=== PATIENT | female | born 1965 | race Caucasian/White ===

== ENCOUNTER 2023-08-13 12:58 | Emergency (ER) | payer OTHER, SELFPAY ==
[2023-08-13 13:00] VITALS: BP 130/66; BMI 19.3
--- NOTE | 2023-08-13 15:16 | ED.GENMED ---
History of Present Illness
General
Chief Complaint: Abdominal Pain
Source: patient
Exam Limitations: none
Time Seen by Provider: 08/13/23 14:41
Nursing documentation reviewed up to this point in time: agreed with
Travel History
Have you had any contact with someone who has COVID-19?: No
Do you have any symptoms of coronavirus? Fever > 100 degrees, chills, cough, shortness of breath, sore throat, loss of taste or smell, muscle aches, or headache?: No
History of Present Illness
History of Present Illness:
pt is a 58 y/o F with some cognitive issues (chronic, has had w/u with no diagnosis, forgetful and anxious)
lives alone
here with mother
saying that she has had intermittent epgiastric pain for months but today at 1130 am started vomiting
vomited x 2 at home
nonbloody nonbilious emesis
no fever, chills, diarrhea
her pain is mild upper abd
nausea resolved
no cp, sob, no black stool
doesn't drink alcohol
in regards to the pain she has had no work up for this problem, it has been intermittent and pt cannot recall if it is related to eating or not
she has never seen her PCP or GI
pt looks to her mother to answer questions reliably
she often times seems flustered
Past History
Past History
ED Past Medical History: Other (cognitive issues, memory problems?)
ED Past Surgical History: None
Social History
Tobacco: Non-smoker
Alcohol: None
Drug: None
Personal: Single
Living: alone
Employment: Employed
Review of Systems
Review of Systems
Allergies reviewed?: Yes
All Other Systems: Not applicable
Phy Exam
Physical Exam
Physical Exam:
GENERAL: Alert , in no apparent distress
EYE: pupils equal and reactive
NECK: Supple
ENT: o/p clr, mmm.
CARDIAC: Regular rate and rhythm .
LUNGS: Clear breath sounds bilaterally, no acute respiratory distress, no wheezes/rales/rhonchi
ABDOMEN: Soft, epigastirc tenderness, mild; no r/g, no cvat, normal bowel sounds
NEUROLOGICAL: Alert and oriented, no focal neuro deficits
SKIN: Warm and dry, skin intact.
MUSCULOSKELETAL: No edema, well perfused.
PSYCH: Normal and appropriate interaction.
Course
Orders/Labs/Results
Orders:
Orders
08/13/23 14:55
Complete Blood Count/With Diff Urgent
Comprehensive Metabolic Panel Urgent
Lipase Urgent
08/13/23 15:16
Iohexol [Omnipaque] See Protocol PO NOW STA
08/13/23 15:17
0.9% Sodium Chloride 1000 ml [Nss] 1,000 ml IV BOLUS
Famotidine [Pepcid] 20 mg IV NOW STA
Ondansetron Injectable [Zofran] 4 mg IV NOW STA
US Abdomen Complete/Upper Urgent
Comment:
Reason For Exam: upper abd pain, vomiting
08/13/23 16:16
CT Abd/pel W Iv And Oral Contr Urgent
Comment:
Reason For Exam: upper abd pain, vomiting; already prepping
08/13/23 17:52
Urinalysis Reflex To Culture Urgent
Date Specimen was Collected: 08/13/23
Time Specimen was Collected: 17:49
Abnormal Lab Results
08/13/23
14:55
WBC 13.7 H 10^3/uL
(4.8-10.8)
Abs Immat Gran (auto) 0.1 H 10^3/uL
(0-0.05)
Absolute Neuts (auto) 12.7 H 10^3/uL
(1.4-6.5)
Absolute Lymphs (auto) 0.4 L 10^3/uL
(1.2-3.4)
Neutrophils % 92.4 H %
(42.2-75.2)
Lymphocytes % 3.0 L %
(20.5-51.1)
BUN 31 H mg/dl
(7-17)
Creatinine 0.5 L mg/dL
(0.6-1.0)
AST 42 H U/L
(14-36)
08/13/23 14:55
08/13/23 14:55
Vital Signs
Initial and Last Documented VS:
Initial Vital Signs
Temp Pulse Resp BP Pulse Ox
98.2 F 82 16 130/66 100
08/13/23 13:00 08/13/23 13:00 08/13/23 13:00 08/13/23 13:00 08/13/23 13:00
Last Documented Vital Signs
Temp Pulse Resp BP Pulse Ox
98.2 F 76 17 103/64 98
08/13/23 13:00 08/13/23 19:16 08/13/23 19:16 08/13/23 19:16 08/13/23 19:16
MDM/Problems Addressed
Differential Diagnosis Includes:
gastritis, cholelithiasis, colitis, pancreatitis
MDM/Problems Addressed:
58 y/o F with unclear memory issues
lives alone
here with pain i epgiastric region with vomiting today
has had this pain episodic for months, mother knows song phillips will complain when she sees her but usually isn't vomiting
no fever, no stool changes
no alcohol abuse
no somking but some stress
on exam mininaml tendenres to epigastric region
pt seems to be unreliable historian, forgetful, looking to mother for answers but she is awake alert and oriented, reports no abuse and feels safe at home
w/u here for cholelithiasis/gastritis --> mild lleukocytosis
initial imaging with US which was neg
ct ordered given concern for lack of details regarding other episodes of pain
and concern for poor f/u with outpatient PCP
ct sohws distension of the stomach, and some mild distension of SB and colon loops without obstructions
she was able to tolerate oral contrazst
feels better after pepcid
will give RX for pepcid and strongly encourage EGD via outpatient GI
return precautions inc ase pt develops into SBO.
*Critical Care Note
Total Time (30-74mins, 75-104mins- exclusive of procedures): Not Applicable
ED Attending Note
-
Portions of this chart may have been created with voice recognition software.� Occasional wrong word or��sound alike� substitutions may have occurred due to the inherent limitations of voice recognition software.
Discharge Plan
Departure
Patient Disposition: Home (Routine Discharge)
Date of Disposition: 08/13/23
Time of Disposition: 19:15
Patient with high blood pressure during this ER visit?: No
Condition: Fair
Covid-19: Not Applicable
Discharge Problem:
Gastroenteritis
Instructions: Gastritis (DC), Viral Gastroenteritis, Adult (DC)
Prescriptions:
New
dicyclomine 20 mg tablet
20 mg PO TID PRN (Reason: abdominal pain) Qty: 14 0RF
famotidine [Pepcid AC] 20 mg tablet
20 mg PO BID Qty: 14 0RF
Referrals:
Rodney Garcia MD [Active] - Follow up in 5-7 days (gi)
Kareem Leonard Jr., [Family Provider] - Follow up in 5-7 days
Activity Restrictions/Additional Instructions:
Your symptoms are likely caused from a viral stomach bug. Your stomach was distended, filled with air. This can make you feel very bloated. If this worsens you could get a bowel obstruction. Please make sure to advance your diet very slowly.
Start with liquids and increase to bland solids as tolerated. For stomach discomfort you can take Pepcid twice a day for a week. Then for crampy abdominal pain you can also try Bentyl 2 or 3 times a day as needed. The Pepcid you should try to
take regularly twice a day for 1 week but the Bentyl you could use only as needed if the Pepcid is not helping. Follow-up with your family doctor, you may need a referral for GI for further workup. Should you get worsening pain, vomiting, fever,
chills, etc. you should come to the ER immediately
Interventions
Interventions:
*Risk Screen - Suicide Last Done: 08/13/23 13:00
*General Assessment Last Done: 08/13/23 19:43
*Neglect/Abuse Screening Last Done: 08/13/23 13:00
ED- Fall Risk Assessment Last Done: 08/13/23 19:43
*ED COVID-19 Vaccine History Last Done: 08/13/23 13:00
*Nursing Disposition Last Done: 08/13/23 19:43
DF-Hwfyte-Zxthmdjgjm Assessment Last Done: 08/13/23 15:17
Discharge Date and Time
Discharge Date/Time: 08/13/23 19:49
Print Language: ICELANDIC
[2023-08-13 15:23] LABS: % Basophils 0.2 % (0-2); % Eosinophils 0.6 % (0-6); % Immature Granulocytes 0.4 % (0-0.5); % Monocytes 3.4 % (1.7-9.3); % Neutrophils 92.4 % (42.2-75.2); Absolute Eosinophils 0.1 10^3/uL (0-0.7); Absolute Immature Granulocytes 0.1 10^3/uL (0-0.05); Absolute Lymphocytes 0.4 10^3/uL (1.2-3.4); Absolute Monocytes 0.5 10^3/uL (0.1-0.6); Absolute Neutrophils 12.7 10^3/uL (1.4-6.5); Hematocrit 45.4 % (37.0-47.0); Hemoglobin 15.5 g/dL (12.0-16.0); Mean Corp Hgb Conc. 34.1 g/dL (33.0-37.0); Mean Corpuscular Hgb 29.4 pg (27.0-31.0); Mean Corpuscular Volume 86.1 fL (81.0-99.0); Mean Platelet Volume 9.7 fL (7.4-10.4); Nucleated Red Blood Cells % 0 %; Platelet Count 257 10^3/uL (130-400); Red Blood Cell Count 5.27 10^6/uL (4.20-5.40); Red Cell Dist. Width 13.4 % (11.5-14.5); White Blood Cell Count 13.7 10^3/uL (4.8-10.8)
[2023-08-13] MEDS: OMNIPAQUE 50 ML PO (15:26)
[2023-08-13] MEDS: NSS 1000 IV (15:27)
[2023-08-13] MEDS: PEPCID 20 MG IV (15:27)
[2023-08-13] MEDS: ZOFRAN 4 MG IV (15:27)
[2023-08-13 16:00] LABS: ALT (SGPT) 32 U/L (0-35); AST (SGOT) 42 U/L (14-36); Albumin 4.9 g/dl (3.5-5.0); Alkaline Phosphatase 99 U/L (38-126); Blood Urea Nitrogen 31 mg/dl (7-17); Calcium 9.9 mg/dl (8.4-10.2); Carbon Dioxide 22 mmol/L (22-30); Chloride 107 mmol/L (98-107); Estimated Creatinine Clearance 72 ml/min; Glucose 93 mg/dl (70-99); Lipase 106 U/L (23-300); Potassium 4.3 mmol/L (3.5-5.1); Sodium 137 mmol/L (135-145); Total Bilirubin 0.8 mg/dl (0.2-1.3); Total Protein 7.8 g/dl (6.3-8.2); eGFR > 60.00
[2023-08-13 18:13] LABS: Urine Albumin Negative (Neg - Trace); Urine Bilirubin Negative (Negative); Urine Character Clear (Clear); Urine Color Straw; Urine Glucose Negative (Negative); Urine Ketone Negative (Negative); Urine Leukocyte Negative (Negative); Urine Nitrite Negative (Negative); Urine Occult Blood Negative (Negative); Urine Specific Gravity 1.005 (<1.030); Urine Urobilinogen Negative (Neg - 1+); Urine pH 6.5 (5.0-9.0)
[2023-08-13 19:16] VITALS: BP 103/64
== END 2023-08-13 19:49 | disposition home or self-care (01) ==
LOC: EMR 12:58
PROVIDERS: Physician Assistant; EMERGENCY PHYSICIAN Emergency Medicine; FAMILY PHYSICIAN Family Medicine
DX: K52.9 Noninfective gastroenteritis and colitis, unspecified (principal)
CPT/HCPCS: 99284; 96374; 96375; 96361; 74177; 76700; 80053; 81003; 83690; 85025; Q9967

== ENCOUNTER → 2023-09-10 08:40 | Outpatient (REF) | payer OTHER, SELFPAY | LOC: RAD 08:40 | PROVIDERS: ATTENDING PHYSICIAN Family Medicine | DX: R10.13 Epigastric pain (principal) | CPT/HCPCS: 78227; A9537; J2805 ==

== ENCOUNTER → 2023-11-12 06:19 | Day surgery (SDC) | payer OTHER, SELFPAY | LOC: GI 06:19 | PROVIDERS: ATTENDING PHYSICIAN Internal Medicine | DX: R93.3 Abnormal findings on diagnostic imaging of other parts of digestive tract (principal); R12 Heartburn; K44.9 Diaphragmatic hernia without obstruction or gangrene; K29.50 Unspecified chronic gastritis without bleeding | CPT/HCPCS: 43239; 88305; 88342 ==

== ENCOUNTER 2024-10-27 06:45 | Emergency (ER) | payer OTHER, SELFPAY ==
[2024-10-27 06:48] VITALS: BP 110/69
[2024-10-27 07:28] VITALS: BMI 20.6
[2024-10-27 07:29] VITALS: BP 112/62
--- NOTE | 2024-10-27 07:38 | ED.GENMED ---
History of Present Illness
General
Chief Complaint: Breathing Problem
Time Seen by Provider: 10/27/24 07:06
History of Present Illness
History of Present Illness:
59-year-old female presents to the emergency department for evaluation of chest pain began this morning. Patient has apparently been complaining of this intermittently since Wednesday. History is limited due to severe dementia. Reportedly
recently started on donepezil and amantadine within the past week by her neurologist at [facility] in [place]. Patient also was reportedly tachypneic this morning which is since improved. She is unable to tell me whether pain still persist.
No recent fevers or respiratory symptoms. Mother also indicates that she has had some occasional complaints of upper abdominal pain since starting these medications.
Past History
Past History
ED Past Medical History: Other (cognitive issues, memory problems?)
ED Past Surgical History: None
Social History
Tobacco: Non-smoker
Alcohol: None
Drug: None
Personal: Single
Living: alone
Employment: Employed
Review of Systems
Review of Systems
Allergies reviewed?: Yes
All Other Systems: ROS reviewed and negative except as documented in HPI and ROS
Phy Exam
Physical Exam
Physical Exam:
GEN: Well appearing, NAD, WDWN
HEENT: Oral mucosa moist, no scleral icterus
Cardiac: Regular rate and rhythm, no murmurs
Lung: No respiratory distress, no tachypnea, lungs clear to auscultation bilaterally
MSK: No gross deformity or injuries
Skin: Good color, no pallor or jaundice, no rashes
Neuro: AO x3, moves all extremities freely
Psych: Calm, cooperative
Scores
Heart Failure Risk
Heart Failure Risk Score: Not Applicable
Course
Orders/Labs/Results
Orders:
Orders
10/27/24 06:56
EKG [Electrocardiogram (*1)] Urgent
Reason for Study: Shortness of Breath
EKG- Treatment ONCE
10/27/24 07:35
CR Chest - 2 Views Urgent
Comment:
Reason For Exam: chest pain
10/27/24 07:36
Complete Blood Count/With Diff Urgent
Comprehensive Metabolic Panel Urgent
Troponin I Urgent
10/27/24 09:35
EKG- Treatment ONCE
10/27/24 10:30
Electrocardiogram (*1) Urgent
Reason for Study: Chest Pain
10/27/24 11:24
Troponin I Urgent
Abnormal Lab Results
10/27/24
07:36
Chloride 111 H mmol/L
(98-107)
BUN 32 H mg/dl
(7-17)
Calcium 10.3 H mg/dl
(8.4-10.2)
10/27/24 07:36
10/27/24 07:36
Vital Signs
Initial and Last Documented VS:
Initial Vital Signs
Temp Pulse Resp BP Pulse Ox
98.3 F 78 20 110/69 100
10/27/24 06:48 10/27/24 06:48 10/27/24 06:48 10/27/24 06:48 10/27/24 06:48
Last Documented Vital Signs
Temp Pulse Resp BP Pulse Ox
98.3 F 64 20 106/56 99
10/27/24 06:48 10/27/24 09:30 10/27/24 09:30 10/27/24 09:02 10/27/24 09:30
MDM/Problems Addressed
MDM/Problems Addressed:
59-year-old female with early onset dementia presents due to chest pain. She had initial EKG and troponin that were unremarkable was observed in the emergency department due to consistent discomfort and repeat troponin and EKG were again normal.
She has no significant cardiovascular risk factors thus I do not have any clinical concern for ACS at this time. Doubt PE given normal vital signs. I discussed her case with her neurologist through [facility] who recommends we
discontinue both Namenda and Aricept as these are both relatively new to see if either of these is provoking her symptoms. She will follow-up as an outpatient with neurology
Comment
Comment:
EKG independently interpreted by me shows normal sinus rhythm at a rate of [address] changes concerning for ischemia
*Pulse Oximetry
SaO2: 100
Oxygen Mode of Delivery: Room air
Patient hypoxic: no
*Critical Care Note
Total Time (30-74mins, 75-104mins- exclusive of procedures): Not Applicable
ED Attending Note
-
Portions of this chart may have been created with voice recognition software.� Occasional wrong word or��sound alike� substitutions may have occurred due to the inherent limitations of voice recognition software.
Discharge Plan
Departure
Patient Disposition: Home (Routine Discharge)
Date of Disposition: 10/27/24
Time of Disposition: 12:18
Patient with high blood pressure during this ER visit?: No
Discharge Problem:
Chest pain
Instructions: Chest Pain (DC)
Prescriptions:
No Action
dicyclomine 20 mg tablet
20 mg PO TID PRN (Reason: abdominal pain) Qty: 14 0RF
famotidine [Pepcid AC] 20 mg tablet
20 mg PO BID Qty: 14 0RF
Referrals:
Kareem Leonard Jr., DO [Family Provider, Internal Medicine]
Activity Restrictions/Additional Instructions:
Follow up with your neurologist; she has recommended stopping both medications to see if this resolves her symptoms
Interventions
Interventions:
*Risk Screen - Suicide Last Done: 10/27/24 06:48
*General Assessment Last Done: 10/27/24 07:40
*Neglect/Abuse Screening Last Done: 10/27/24 06:48
*ED- Fall Risk Assessment Last Done: 10/27/24 12:37
*ED COVID-19 Vaccine History Last Done: 10/27/24 07:40
*Nursing Disposition Last Done: 10/27/24 12:37
ED- Cardiac Assessment Last Done: 10/27/24 08:54
ED- Pulmonary Assessment Last Done: 10/27/24 08:54
Discharge Date and Time
Discharge Date/Time: 10/27/24 12:39
Print Language: TAMAZIGHT
[2024-10-27 07:49] LABS: % Basophils 0.8 % (0-2); % Eosinophils 0.8 % (0-6); % Immature Granulocytes 0.4 % (0-0.5); % Lymphocytes 32.1 % (20.5-51.1); % Monocytes 8.5 % (1.7-9.3); % Neutrophils 57.4 % (42.2-75.2); Absolute Lymphocytes 1.6 10^3/uL (1.2-3.4); Absolute Monocytes 0.4 10^3/uL (0.1-0.6); Absolute Neutrophils 2.8 10^3/uL (1.4-6.5); Hematocrit 40.5 % (37.0-47.0); Hemoglobin 14.3 g/dL (12.0-16.0); Mean Corp Hgb Conc. 35.3 g/dL (33.0-37.0); Mean Corpuscular Hgb 29.2 pg (27.0-31.0); Mean Corpuscular Volume 82.8 fL (81.0-99.0); Mean Platelet Volume 9.8 fL (7.4-10.4); Nucleated Red Blood Cells % 0 %; Platelet Count 301 10^3/uL (130-400); Red Blood Cell Count 4.89 10^6/uL (4.20-5.40); Red Cell Dist. Width 13.2 % (11.5-14.5); White Blood Cell Count 4.8 10^3/uL (4.8-10.8)
[2024-10-27 08:23] LABS: ALT (SGPT) 24 U/L (0-35); AST (SGOT) 30 U/L (14-36); Alkaline Phosphatase 101 U/L (38-126); Blood Urea Nitrogen 32 mg/dl (7-17); Calcium 10.3 mg/dl (8.4-10.2); Carbon Dioxide 23 mmol/L (22-30); Chloride 111 mmol/L (98-107); Estimated Creatinine Clearance 62 ml/min; Glucose 98 mg/dl (70-99); Potassium 4.2 mmol/L (3.5-5.1); Sodium 143 mmol/L (135-145); Total Bilirubin 0.6 mg/dl (0.2-1.3); Total Protein 7.7 g/dl (6.3-8.2); eGFR > 60.00
[2024-10-27 08:31] LABS: Troponin I < 0.012 ng/ml
[2024-10-27 09:02] VITALS: BP 106/56
[2024-10-27 12:05] LABS: Troponin I < 0.012 ng/ml
== END 2024-10-27 12:39 | disposition home or self-care (01) ==
LOC: EMR 06:45
PROVIDERS: Physician Assistant; EMERGENCY PHYSICIAN Emergency Medicine; FAMILY PHYSICIAN Family Medicine
DX: R07.89 Other chest pain (principal); F03.C0 Unspecified dementia, severe, without behavioral disturbance, psychotic disturbance, mood disturbance, and anxiety
CPT/HCPCS: 99285; 71046; 80053; 84484; 85025; 93005

== ENCOUNTER → 2024-11-03 10:55 | Outpatient (REF) | payer OTHER, SELFPAY | LOC: HWRAD 10:55 | PROVIDERS: ATTENDING PHYSICIAN Family Medicine | DX: R07.89 Other chest pain (principal); R10.13 Epigastric pain | CPT/HCPCS: 76700 ==

== ENCOUNTER 2024-12-05 14:21 | Emergency (ER) | payer OTHER, SELFPAY ==
[2024-12-05 14:23] VITALS: BP 118/52
[2024-12-05 14:46] LABS: Hematocrit 41.5 % (37.0-47.0); Hemoglobin 14.2 g/dL (12.0-16.0); Mean Corp Hgb Conc. 34.2 g/dL (33.0-37.0); Mean Corpuscular Volume 83.5 fL (81.0-99.0); Nucleated Red Blood Cells % 0 %; Platelet Count 298 10^3/uL (130-400); Red Cell Dist. Width 13.9 % (11.5-14.5)
[2024-12-05 15:06] LABS: ALT (SGPT) 19 U/L (0-35); AST (SGOT) 27 U/L (14-36); Albumin 5.1 g/dl (3.5-5.0); Alkaline Phosphatase 87 U/L (38-126); Blood Urea Nitrogen 26 mg/dl (7-17); Calcium 10.3 mg/dl (8.4-10.2); Carbon Dioxide 27 mmol/L (22-30); Chloride 104 mmol/L (98-107); Glucose 89 mg/dl (70-99); Potassium 4.0 mmol/L (3.5-5.1); Sodium 140 mmol/L (135-145); Total Protein 7.7 g/dl (6.3-8.2); eGFR > 60.00
[2024-12-05 15:09] LABS: Troponin I < 0.012 ng/ml
== END 2024-12-05 15:46 | disposition left against medical advice (07) ==
LOC: EMR 14:21
PROVIDERS: Emergency Medicine; EMERGENCY PHYSICIAN Emergency Medicine
DX: R07.9 Chest pain, unspecified (principal); Z53.21 Procedure and treatment not carried out due to patient leaving prior to being seen by health care provider
CPT/HCPCS: 80053; 84484; 85025; 93005

== ENCOUNTER 2024-12-20 12:01 | Outpatient (REF) | payer OTHER, SELFPAY ==
[2024-12-20 12:50] LABS: Hematocrit 40.8 % (37.0-47.0); Hemoglobin 13.4 g/dL (12.0-16.0); Mean Corp Hgb Conc. 32.8 g/dL (33.0-37.0); Mean Corpuscular Volume 85.5 fL (81.0-99.0); Nucleated Red Blood Cells % 0 %; Platelet Count 289 10^3/uL (130-400); Red Cell Dist. Width 13.9 % (11.5-14.5)
[2024-12-20 12:56] LABS: INR 0.86; PT 12.2 Sec (11.4-14.6)
[2024-12-20 12:57] LABS: APTT 27.4 Sec (23.4-35.0)
[2024-12-20 12:58] VITALS: BP 112/68; BP_SYST 77
[2024-12-20 13:38] LABS: Total Protein 7.3 g/dl (6.3-8.2)
[2024-12-20 14:02] VITALS: BP 110/54; BP_SYST 59
[2024-12-20 14:40] VITALS: BP 108/55
[2024-12-20 15:35] LABS: CSF Color Colorless
[2024-12-20 15:36] LABS: Red Cell Count/CSF 451 mm^3; White Cell Count/CSF 1 mm^3 (0-5)
[2024-12-20 15:38] VITALS: BP 131/58
[2024-12-20 15:39] LABS: CSF Color Colorless; CSF Tube # Clarity Clear; Red Cell Count/CSF 7 mm^3; White Blood Cell Count/CSF 0 mm^3 (0-5)
== END 2024-12-20 15:54 | disposition home or self-care (01) ==
LOC: RADI 12:01
PROVIDERS: ATTENDING PHYSICIAN Psychiatry & Neurology Neurology; FAMILY PHYSICIAN Family Medicine; REFERRING PHYSICIAN Physician Assistant
DX: R41.82 Altered mental status, unspecified (principal); F03.90 Unspecified dementia, unspecified severity, without behavioral disturbance, psychotic disturbance, mood disturbance, and anxiety
CPT/HCPCS: 36415; 62328; 82040; 82042; 82784; 82945; 83916; 84155; 84157; 84165; 85025; 85610; 85730; 86592; 86694; 89051

== ENCOUNTER 2025-01-03 08:34 | Emergency (ER) | payer OTHER, SELFPAY ==
[2025-01-03 08:36] VITALS: BP 109/66
--- NOTE | 2025-01-03 08:43 | ED.GENMED ---
History of Present Illness
General
Chief Complaint: Cough
Source: patient
Exam Limitations: none
Time Seen by Provider: 01/03/25 08:40
Nursing documentation reviewed up to this point in time: agreed with
History of Present Illness
History of Present Illness:
Patient is a 59 female with history of early onset Alzheimer's, depression presents to the ER for evaluation. Mom reports patient started with cough about 2 weeks ago. Over the past several days however mom reports symptoms have slightly
increased. Patient's been complaining of increasing cough and hoarse voice. She did have a fever of 101 yesterday.
Past History
Past History
ED Past Medical History: Other (cognitive issues, memory problems?)
ED Past Surgical History: None
Social History
Tobacco: Non-smoker
Alcohol: None
Drug: None
Personal: Single
Living: alone
Employment: Employed
Phy Exam
General Physical Exam
General Presentation: no apparent distress
General age: appears stated age
General Skin: warm and dry
General Habitus: normal
General Mental: confused ((baseline) )
General Hydration: appears well hydrated
Cardiovascular Exam
Cardiovascular Exam: regular rate/rhythm, no murmur and normal peripheral pulses
Pulmonary Exam
Pulmonary Exam: no respiratory distress
Course
Orders/Labs/Results
Orders:
Orders
01/03/25 08:50
Chest [CR Chest - 2 Views ] Urgent
Comment:
Reason For Exam: cough
01/03/25 09:00
COVID-19 Antigen Urgent
Source: Nasal Swab
Influenza A+B Rapid Molecular Urgent
MATTIE Source: Nasal Swab
Specimen Description:
01/03/25 09:31
Albuterol Nebs [Ventolin Nebules] 2.5 mg INH R NOW STA
01/03/25 09:46
Cefdinir [Omnicef] 300 mg PO NOW STA
Doxycycline [Vibramycin] 100 mg PO NOW STA
01/03/25 10:05
Cefdinir [Omnicef] 300 mg PO NOW STA
Vital Signs
Initial and Last Documented VS:
Initial Vital Signs
Temp Pulse Resp BP Pulse Ox
98.7 F 97 18 109/66 97
01/03/25 08:36 01/03/25 08:36 01/03/25 08:36 01/03/25 08:36 01/03/25 08:36
Last Documented Vital Signs
Temp Pulse Resp BP Pulse Ox
98.7 F 64 16 109/59 98
01/03/25 08:36 01/03/25 09:33 01/03/25 09:33 01/03/25 09:33 01/03/25 09:33
MDM/Problems Addressed
Differential Diagnosis Includes:
Not limited to viral syndrome, bronchitis, COVID, flu, pneumonia
MDM/Problems Addressed:
X-ray consistent with right lobe pneumonia. Patient is awake alert no acute distress she does have early onset dementia and is unable to give good history history given from mom. Patient has been intermittently sick for the past 2 weeks worse for
the past several days temperature yesterday 101. Mom reports cough and hoarse voice. Patient presents awake alert she is in no acute distress slight wheeze on the left however not hypoxic. COVID flu negative. Will give 1 neb here in the ER
however patient is having difficulty with neb, follow instructions due to dementia. She is very well-appearing will DC with antibiotics, Doxy and cefdinir. Mom is unaware of any cephalosporin allergy though it is listed as 'unknown' we will give
a dose here and monitor in the ER. Plan to d/c home without pt fu.
Patient was monitored here tolerated all medications well remained stable well-appearing no acute distress stable for discharge home
Chronic conditions affecting care:
Early onset dementia
*Radiology
Radiology exam reviewed: radiology read reviewed
*Pulse Oximetry
SaO2: 97
Oxygen Mode of Delivery: Room air
Patient hypoxic: no
*Critical Care Note
Total Time (30-74mins, 75-104mins- exclusive of procedures): Not Applicable
ED Attending Note
-
Portions of this chart may have been created with voice recognition software.� Occasional wrong word or��sound alike� substitutions may have occurred due to the inherent limitations of voice recognition software.
Discharge Plan
Departure
Patient Disposition: Home (Routine Discharge)
Date of Disposition: 01/03/25
Time of Disposition: 11:20
Patient with high blood pressure during this ER visit?: No
Condition: Fair
Covid-19: Not Applicable
Discharge Problem:
Pneumonia
Instructions: Pneumonia, Adult (DC)
Prescriptions:
New
doxycycline hyclate 100 mg capsule
100 mg PO BID Qty: 20 0RF
cefdinir 300 mg capsule
300 mg PO BID Qty: 20 0RF
No Action
dicyclomine 20 mg tablet
20 mg PO TID PRN (Reason: abdominal pain) Qty: 14 0RF
famotidine [Pepcid AC] 20 mg tablet
20 mg PO BID Qty: 14 0RF
Referrals:
Kareem Leonard Jr., DO [Family Provider, Internal Medicine]
Activity Restrictions/Additional Instructions:
As discussed antibiotics were sent to pharmacy to take twice daily for the next 10 days. Follow-up with family doctor in the next 2 to 3 days return if any worsening of symptoms including shortness of breath worsening fevers or any further concerns.
Interventions
Interventions:
*Risk Screen - Suicide Last Done: 01/03/25 08:36
*General Assessment Last Done: 01/03/25 08:36
*Neglect/Abuse Screening Last Done: 01/03/25 08:48
*ED- Fall Risk Assessment Last Done: 01/03/25 08:48
*ED COVID-19 Vaccine History Last Done: 01/03/25 08:36
ED- Pulmonary Assessment Last Done: 01/03/25 08:48
Discharge Date and Time
Print Language: FAROESE
[2025-01-03 09:23] LABS: COVID-19 Antigen Negative (Negative)
[2025-01-03 09:31] VITALS: BP 109/59
[2025-01-03 09:33] VITALS: BP 109/59
[2025-01-03] MEDS: VENTOLIN NEBULES 2.5 MG INH (09:37)
[2025-01-03] MEDS: VIBRAMYCIN 100 MG PO (09:52)
[2025-01-03 10:00] VITALS: BP 106/64
[2025-01-03] MEDS: OMNICEF 300 MG PO (10:14)
[2025-01-03 11:19] VITALS: BP 149/124
[2025-01-03 11:20] VITALS: BP 103/55
== END 2025-01-03 11:34 | disposition home or self-care (01) ==
LOC: EMR 08:34
PROVIDERS: Nurse Practitioner; EMERGENCY PHYSICIAN Emergency Medicine; FAMILY PHYSICIAN Family Medicine
DX: J18.9 Pneumonia, unspecified organism (principal); F02.80 Dementia in other diseases classified elsewhere, unspecified severity, without behavioral disturbance, psychotic disturbance, mood disturbance, and anxiety; G30.9 Alzheimer's disease, unspecified; Z11.52 Encounter for screening for COVID-19
CPT/HCPCS: 94640; 99284; 71046; 87502; 87811

== ENCOUNTER 2025-01-15 10:25 | Emergency (ER) | payer OTHER, SELFPAY ==
[2025-01-15 10:27] VITALS: BP 112/71
--- NOTE | 2025-01-15 11:21 | ED.GENMED ---
History of Present Illness
General
Chief Complaint: Breathing Problem
Source: patient
Time Seen by Provider: 01/15/25 11:02
Nursing documentation reviewed up to this point in time: agreed with
History of Present Illness
History of Present Illness:
Patient diagnosed with pneumonia recently in ED and completed course of antibiotics, presents to ED secondary to persistent cough despite taking her medications. Denies fever or chills. Denies vomiting or diarrhea. Denies sore throat. Denies
headache. Denies dizziness. Denies loss of appetite. Denies back pain. Denies leg pain or swelling. Denies recent travel. Denies recent surgery.
Past History
Past History
ED Past Medical History: Other (cognitive issues, memory problems?)
ED Past Surgical History: None
Social History
Tobacco: Non-smoker
Alcohol: None
Drug: None
Personal: Single
Living: alone
Employment: Employed
Review of Systems
Review of Systems
Allergies reviewed?: Yes
All Other Systems: ROS reviewed and negative except as documented in HPI and ROS
Constitutional: Reports no symptoms; Denies fever
Respiratory: Reports cough; Denies trouble breathing
Cardiac: Reports no symptoms; Denies chest pain
ABD/GI: Reports no symptoms; Denies vomiting or diarrhea
Musculoskeletal: Reports no symptoms
Skin: Reports no symptoms
Neurological: Reports no symptoms
Phy Exam
Physical Exam
Physical Exam:
Physical Exam
General: no apparent distress, not acutely ill. afebrile
Head: nc/at. eomi
Neck: supple. no meningeal signs.
Heart: s1/s2 regular rate and rhythm
Lungs: no acute respiratory distress. clear bilaterally
Abdomen: normal bowel sounds. not tender.
Neuro: alert and oriented x 3. no focal neurological deficits
Skin: no rash
Psychiatric: well kept. interactive and cooperative
Extremities: no edema. no calf tenderness.
Scores
Heart Failure Risk
Heart Failure Risk Score: Not Applicable
Course
Orders/Labs/Results
Orders:
Orders
01/15/25 11:11
Albuterol Nebs [Ventolin Nebules] 2.5 mg INH R NOW STA
Guaifenesin/Codeine Solution [Robitussin AC] 10 ml PO NOW STA
01/15/25 11:46
D-Dimer Urgent
01/15/25 11:49
Basic Metabolic Panel Urgent
Complete Blood Count/With Diff Urgent
Magnesium Urgent
01/15/25 12:25
CT Chest PE Study Urgent
Comment:
Reason For Exam: cough/sob w elevated d-dimer
Abnormal Lab Results
01/15/25 01/15/25
11:46 11:49
Absolute Lymphs (auto) 1.1 L 10^3/uL
(1.2-3.4)
Lymphocytes % 19.9 L %
(20.5-51.1)
Monocytes % 9.9 H %
(1.7-9.3)
D-Dimer 1.10 H ug/mlFEU
(0.00-0.50)
BUN 22 H mg/dl
(7-17)
01/15/25 11:49
01/15/25 11:49
Vital Signs
Initial and Last Documented VS:
Initial Vital Signs
Temp Pulse Resp BP Pulse Ox
98.1 F 77 16 112/71 99
01/15/25 10:27 01/15/25 10:27 01/15/25 10:27 01/15/25 10:27 01/15/25 10:27
Last Documented Vital Signs
Temp Pulse Resp BP Pulse Ox
98.1 F 71 16 106/67 97
01/15/25 10:27 01/15/25 15:47 01/15/25 15:47 01/15/25 15:47 01/15/25 15:47
MDM/Problems Addressed
MDM/Problems Addressed:
CT report reviewed and discussed with the patient. Otherwise, pt remains afebrile, hemodynamically stable, without any acute respiratory distress during observation. Pt will be treated conservatively with course of steroids and cough medication, as
pt already finished 2 different abx based on initial cxr findings. Pt will be advised to f/u with pmd or referred pulmonology for re-evaluation, if symptoms persist.
*Pulse Oximetry
SaO2: 98
Oxygen Mode of Delivery: Room air
Patient hypoxic: no
*Critical Care Note
Total Time (30-74mins, 75-104mins- exclusive of procedures): Not Applicable
ED Attending Note
-
Portions of this chart may have been created with voice recognition software.� Occasional wrong word or��sound alike� substitutions may have occurred due to the inherent limitations of voice recognition software.
Discharge Plan
Departure
Patient Disposition: Home (Routine Discharge)
Date of Disposition: 01/15/25
Time of Disposition: 15:33
Patient with high blood pressure during this ER visit?: No
Condition: Good
Discharge Problem:
Bronchiolitis
Instructions: Acute bronchitis in adults
Prescriptions:
New
methylprednisolone [Medrol (Hermes)] 4 mg tablets,dose pack
4 mg PO DAILY Qty: 21 0RF
Rx Instructions:
Use as directed
albuterol sulfate [Ventolin HFA] 90 mcg/actuation HFA aerosol inhaler
2 puff inhalation Q6H PRN (Reason: shortness of breath or coughing) Qty: 6.7 0RF
benzonatate 100 mg capsule
100 mg PO TID PRN (Reason: Cough) Qty: 20 0RF
No Action
dicyclomine 20 mg tablet
20 mg PO TID PRN (Reason: abdominal pain) Qty: 14 0RF
famotidine [Pepcid AC] 20 mg tablet
20 mg PO BID Qty: 14 0RF
doxycycline hyclate 100 mg capsule
100 mg PO BID Qty: 20 0RF
cefdinir 300 mg capsule
300 mg PO BID Qty: 20 0RF
Referrals:
Suhail Rodríguez MD [Active, Pulmonary Medicine]
Kareem Leonard Jr., DO [Family Provider, Internal Medicine]
Activity Restrictions/Additional Instructions:
As discussed, please follow-up with your primary care physician and/or referred to [facility] for reevaluation. Please consider return to ED with worsening symptoms. Your prescriptions have been sent electronically to [facility] pharmacy in [place].
Interventions
Interventions:
*Risk Screen - Suicide Last Done: 01/15/25 15:29
*General Assessment Last Done: 01/15/25 10:42
*Neglect/Abuse Screening Last Done: 01/15/25 10:44
*ED- Fall Risk Assessment Last Done: 01/15/25 10:42
*ED COVID-19 Vaccine History Last Done: 01/15/25 10:42
*Nursing Disposition Last Done: 01/15/25 15:47
ED- Cardiac Assessment Last Done: 01/15/25 10:43
ED- Pulmonary Assessment Last Done: 01/15/25 10:43
Discharge Date and Time
Discharge Date/Time: 01/15/25 15:48
Print Language: URDU
[2025-01-15] MEDS: ROBITUSSIN AC 10 ML PO (11:32)
[2025-01-15] MEDS: VENTOLIN NEBULES 2.5 MG INH (11:32)
[2025-01-15 11:42] VITALS: BP 108/69
[2025-01-15 12:00] VITALS: BP 110/60
[2025-01-15 12:07] LABS: Hematocrit 37.4 % (37.0-47.0); Hemoglobin 13.0 g/dL (12.0-16.0); Mean Corp Hgb Conc. 34.8 g/dL (33.0-37.0); Mean Corpuscular Volume 82.6 fL (81.0-99.0); Nucleated Red Blood Cells % 0 %; Platelet Count 360 10^3/uL (130-400); Red Cell Dist. Width 13.2 % (11.5-14.5)
[2025-01-15 12:15] LABS: D-Dimer 1.10 ug/mlFEU (0.00-0.50)
[2025-01-15 12:34] LABS: Blood Urea Nitrogen 22 mg/dl (7-17); Calcium 10.1 mg/dl (8.4-10.2); Carbon Dioxide 25 mmol/L (22-30); Chloride 106 mmol/L (98-107); Glucose 96 mg/dl (70-99); Magnesium 2.2 mg/dl (1.6-2.3); Potassium 4.0 mmol/L (3.5-5.1); Sodium 137 mmol/L (135-145); eGFR > 60.00
[2025-01-15 13:00] VITALS: BP 106/61
[2025-01-15 14:00] VITALS: BP 104/64
[2025-01-15 15:47] VITALS: BP 106/67
== END 2025-01-15 15:48 | disposition home or self-care (01) ==
LOC: EMR 10:25
PROVIDERS: EMERGENCY PHYSICIAN Emergency Medicine; FAMILY PHYSICIAN Family Medicine
DX: J21.9 Acute bronchiolitis, unspecified (principal)
CPT/HCPCS: 99284; 71275; 80048; 83735; 85025; 85379; Q9967

== ENCOUNTER 2025-01-26 10:18 | Emergency (ER) | payer OTHER, SELFPAY ==
[2025-01-26 10:21] VITALS: BP 105/61
[2025-01-26 10:39] VITALS: BP 117/62
[2025-01-26 11:00] VITALS: BP 115/71
[2025-01-26 11:05] VITALS: BMI 19.8
--- NOTE | 2025-01-26 11:15 | ED.GENMED ---
History of Present Illness
General
Chief Complaint: Breathing Problem
Source: patient, family, previous radiology exam and previous hospital records
Exam Limitations: dementia
Time Seen by Provider: 01/26/25 10:39
Nursing documentation reviewed up to this point in time: agreed with
History of Present Illness
History of Present Illness:
59-year-old female cough congestion productive sputum diagnosed with pneumonia and bronchitis by CT scan and chest x-ray treated with albuterol inhaler and Medrol Dosepak p.o. antibiotics, symptoms stayed persistent never really improved mother took
bedside states that the patient suffers from early onset dementia she is struggling getting her to take the meds as prescribed, he has not had any fevers or chills or chest pain
Past History
Past History
ED Past Medical History: Other (Dementia non-smoker)
ED Past Surgical History: None
Social History
Tobacco: Non-smoker
Alcohol: None
Drug: None
Personal: Single
Living: with family
Employment: Not employed
Review of Systems
Review of Systems
Allergies reviewed?: Yes
Unable to obtain full review of systems at this time due to: dementia
Other source history: family
All Other Systems: Not applicable
Constitutional: Denies fever or fatigue
Respiratory: Reports cough and trouble breathing; Denies hemoptysis
Cardiac: Reports no symptoms
ABD/GI: Reports no symptoms
: Reports no symptoms
Musculoskeletal: Reports no symptoms
Phy Exam
Physical Exam
Physical Exam:
Physical Exam
General: 59 female coughing
Neck: No jaw
Heart: s1/s2 regular rate and rhythm, no murmur. equal radial pulses.
Lungs: Wheeze and rhonchi on the left
Abdomen: Nontender
Neuro: alert and oriented. no focal neurological deficits
Skin: no rash
Psychiatric: well kept. interactive and cooperative
Extremities: no edema. no calf tenderness.
Scores
Heart Failure Risk
Heart Failure Risk Score: Not Applicable
Course
Orders/Labs/Results
Orders:
Orders
01/26/25 10:37
Electrocardiogram (*1) Urgent
Reason for Study: Chest Pain
Cardiac Monitoring- Treatment ONCE
IV Insert/Care/Rem.- Treatment PRN
01/26/25 10:38
EKG- Treatment ONCE
01/26/25 11:04
Dexamethasone Sod Phosphate [Decadron] 10 mg IV NOW STA
Ipratropium/Albuterol Sulfate [Duoneb] 3 ml INH R NOW STA
CR Chest - 2 Views Urgent
Comment:
Reason For Exam: cugh
01/26/25 11:07
COVID-19 Antigen Urgent
Source: Nasal Swab
Influenza A+B Rapid Molecular Urgent
MATTIE Source: Nasal Swab
Specimen Description:
01/26/25 11:14
Complete Blood Count/With Diff Urgent
Comprehensive Metabolic Panel Urgent
Troponin I Urgent
Abnormal Lab Results
01/26/25
11:14
Abs Immat Gran (auto) 0.1 H 10^3/uL
(0-0.05)
Absolute Monos (auto) 0.7 H 10^3/uL
(0.1-0.6)
Immature Gran % 0.8 H %
(0-0.5)
Monocytes % 10.8 H %
(1.7-9.3)
BUN 27 H mg/dl
(7-17)
01/26/25 11:14
01/26/25 11:14
Vital Signs
Initial and Last Documented VS:
Initial Vital Signs
Temp Pulse Resp BP Pulse Ox
98.4 F 77 22 105/61 98
01/26/25 10:21 01/26/25 10:21 01/26/25 10:21 01/26/25 10:21 01/26/25 10:21
Last Documented Vital Signs
Temp Pulse Resp BP Pulse Ox
98.8 F 77 18 127/91 96
01/26/25 11:05 01/26/25 13:15 01/26/25 13:15 01/26/25 13:00 01/26/25 13:15
MDM/Problems Addressed
Differential Diagnosis Includes:
Pneumonia bronchitis aspiration
MDM/Problems Addressed:
Coughing
Chronic conditions affecting care:
Dementia
Chronic conditions affecting care: Neurological disorder
Acute Exacerbation and/or Progression of Chronic Illness: Neurological disorder
*Pulse Oximetry
SaO2: 98
Oxygen Mode of Delivery: Room air
Patient hypoxic: no
*EKG
Interpreted by ED Provider?: Yes
Interpretation: abnormal
Comparison EKG: no comparison EKG present
Heart Rate: 78
Rate: normal
Rhythm: sinus
Ischemia: non-specific ST changes
*Quality Assurance Analyst Interpretation
Rate: normal
Interpretation: normal
Heart Rate: 78
Rhythm: sinus
*Critical Care Note
Total Time (30-74mins, 75-104mins- exclusive of procedures): Not Applicable
Data Reviewed
Review of Other/Old Records Reveals: Labs, Records and Radiology Studies
Source: patient and family
Update Note
Update Note:
115 labs noted x-ray noted been unable to provide a sputum, x-ray looks improved on my prior antibiotics noted, looks like she did pretty well with a nebulizer, will try to set her up with one as opposed to an MDI, switch to Zithromax, course of
steroids, albuterol PCP and pulmonary follow-up
ED Attending Note
-
Portions of this chart may have been created with voice recognition software.� Occasional wrong word or��sound alike� substitutions may have occurred due to the inherent limitations of voice recognition software.
Discharge Plan
Departure
Patient Disposition: Home (Routine Discharge)
Date of Disposition: 01/26/25
Time of Disposition: 13:15
Patient with high blood pressure during this ER visit?: No
Condition: Good
Covid-19: Not Applicable
Discharge Problem:
Acute bronchitis
Instructions: Acute Bronchitis, Adult (DC)
Prescriptions:
New
azithromycin [Zithromax] 250 mg tablet
250 mg PO DAILY Qty: 6 0RF
albuterol sulfate 2.5 mg /3 mL (0.083 %) solution for nebulization
2.5 mg inhalation Q4H PRN (Reason: bronchospasm) Qty: 180 2RF
methylprednisolone [Medrol (Hermes)] 4 mg tablets,dose pack
See Rx Instructions .ROUTE .COMPLEX Qty: 21 0RF
Rx Instructions:
for 6 days
No Action
dicyclomine 20 mg tablet
20 mg PO TID PRN (Reason: abdominal pain) Qty: 14 0RF
famotidine [Pepcid AC] 20 mg tablet
20 mg PO BID Qty: 14 0RF
doxycycline hyclate 100 mg capsule
100 mg PO BID Qty: 20 0RF
cefdinir 300 mg capsule
300 mg PO BID Qty: 20 0RF
methylprednisolone [Medrol (Hermes)] 4 mg tablets,dose pack
4 mg PO DAILY Qty: 21 0RF
Rx Instructions:
Use as directed
albuterol sulfate [Ventolin HFA] 90 mcg/actuation HFA aerosol inhaler
2 puff inhalation Q6H PRN (Reason: shortness of breath or coughing) Qty: 6.7 0RF
benzonatate 100 mg capsule
100 mg PO TID PRN (Reason: Cough) Qty: 20 0RF
Referrals:
[facility] [Provider Group] - Next open appointment
Tommy Lima MD [Active, Pulmonary Medicine] - Next open appointment
UNKNOWN - PT DOES,NOT KNOW [Family Provider]
Interventions
Interventions:
*Risk Screen - Suicide Last Done: 01/26/25 11:23
*General Assessment Last Done: 01/26/25 11:23
*Neglect/Abuse Screening Last Done: 01/26/25 11:23
*ED- Fall Risk Assessment Last Done: 01/26/25 11:23
*ED COVID-19 Vaccine History Last Done: 01/26/25 11:23
*Nursing Disposition Last Done: 01/26/25 13:35
ED- Cardiac Assessment Last Done: 01/26/25 11:23
ED- Pulmonary Assessment Last Done: 01/26/25 11:23
Discharge Date and Time
Discharge Date/Time: 01/26/25 13:35
Print Language: WOLOF
[2025-01-26 11:26] LABS: Hematocrit 38.5 % (37.0-47.0); Hemoglobin 13.1 g/dL (12.0-16.0); Mean Corp Hgb Conc. 34.0 g/dL (33.0-37.0); Mean Corpuscular Volume 82.4 fL (81.0-99.0); Nucleated Red Blood Cells % 0 %; Platelet Count 294 10^3/uL (130-400); Red Cell Dist. Width 13.5 % (11.5-14.5)
[2025-01-26] MEDS: DECADRON 10 MG IV (11:31)
[2025-01-26] MEDS: DUONEB INH (11:31)
[2025-01-26 11:38] LABS: ALT (SGPT) 22 U/L (0-35); AST (SGOT) 29 U/L (14-36); Albumin 4.2 g/dl (3.5-5.0); Alkaline Phosphatase 101 U/L (38-126); Blood Urea Nitrogen 27 mg/dl (7-17); Calcium 9.6 mg/dl (8.4-10.2); Carbon Dioxide 27 mmol/L (22-30); Chloride 106 mmol/L (98-107); Estimated Creatinine Clearance 73 ml/min; Glucose 91 mg/dl (70-99); Potassium 4.2 mmol/L (3.5-5.1); Sodium 138 mmol/L (135-145); Total Protein 7.1 g/dl (6.3-8.2); eGFR > 60.00
[2025-01-26 11:44] LABS: COVID-19 Antigen Negative (Negative)
[2025-01-26] MEDS: DUONEB 3 ML INH (11:47)
[2025-01-26 11:49] LABS: Troponin I < 0.012 ng/ml
[2025-01-26 12:24] VITALS: BP 126/74
[2025-01-26 13:00] VITALS: BP 127/91
== END 2025-01-26 13:35 | disposition home or self-care (01) ==
LOC: EMR 10:18
PROVIDERS: EMERGENCY PHYSICIAN Emergency Medicine
DX: J20.9 Acute bronchitis, unspecified (principal); F03.90 Unspecified dementia, unspecified severity, without behavioral disturbance, psychotic disturbance, mood disturbance, and anxiety
CPT/HCPCS: 99284; 96374; 94640; 71046; 80053; 84484; 85025; 87502; 87811; 93005

== ENCOUNTER → 2025-02-15 08:52 | Outpatient (REF) | payer OTHER, SELFPAY | LOC: HWRAD 08:52 | PROVIDERS: ATTENDING PHYSICIAN Registered Nurse; FAMILY PHYSICIAN Family Medicine | DX: J18.9 Pneumonia, unspecified organism (principal) | CPT/HCPCS: 71046 ==

== ENCOUNTER → 2025-03-23 08:36 | Outpatient (REF) | payer OTHER, SELFPAY | LOC: RST 08:36 | PROVIDERS: ATTENDING PHYSICIAN Registered Nurse | DX: J18.9 Pneumonia, unspecified organism (principal); G30.0 Alzheimer's disease with early onset; T17.900S Unspecified foreign body in respiratory tract, part unspecified causing asphyxiation, sequela | CPT/HCPCS: 74230; 92611 ==

== ENCOUNTER → 2025-04-02 08:55 | Outpatient (REF) | payer OTHER, SELFPAY | LOC: RAD 08:55 | PROVIDERS: ATTENDING PHYSICIAN Registered Nurse; FAMILY PHYSICIAN Family Medicine | DX: J18.9 Pneumonia, unspecified organism (principal) | CPT/HCPCS: 71046 ==